=== PATIENT | male | born 1990 | race African-American/Black ===

== ENCOUNTER 2019-02-17 20:40 | Emergency (ER) | payer BC ==
[~2019-02-17] VITALS: Ht 185.4 cm; Wt 124.7 kg
[2019-02-17 23:16] VITALS: BP 122/103
[2019-02-17 23:54] LABS: INFLUENZA A PATIENT POSITIVE (NEGATIVE); INFLUENZA B PATIENT NEGATIVE (NEGATIVE)
[2019-02-18] MEDS ORDERED: OSEL75CA PO (00:10)
--- NOTE | 2019-02-18 00:10 | PHYS DOC ---
Past Medical History Past Medical History: Diabetes-Type II (MUNDO JEFFREY APRN) Past Surgical History: No Surgical History (MUNDO JEFFREY APRN) Alcohol Use: None Drug Use: None (MUNDO JEFFREY APRN) Attending Signature I have participated in the care of this patient and I have reviewed and agree with all pertinent clinical information above including history, exam, and recommendations. (STEVE CARMONA MD) Adult General Chief Complaint Chief Complaint: FLU SYMPTOM HPI HPI Patient is a 28 year old male who presents with fever, body aches, fatigue. Patient reports his symptoms started in the last 24-36 hours. Reports he hasn't checked his temperature at home but he has felt chills, fevers. States he has had a mild cough for the last day, has not taken any medications for discomfort. Denies nausea, vomiting, diarrhea. (MUNDO JEFFREY APRN) Review of Systems Review of Systems Constitutional: Reports feeling warm, and having chills] Eyes: Denies change in visual acuity, redness, or eye pain [] HENT: Denies nasal congestion or sore throat [] Respiratory: Reports intermittent cough, nonproductive[] Cardiovascular: No additional information not addressed in HPI [] GI: Denies abdominal pain, nausea, vomiting, bloody stools or diarrhea [] : Denies dysuria or hematuria [] Musculoskeletal: Denies back pain or joint pain. Reports generalized body aches [] Integument: Denies rash or skin lesions [] Neurologic: Reports occasional headaches[] Endocrine: Denies polyuria or polydipsia [] All other systems were reviewed and found to be within normal limits, except as documented in this note. (MUNDO JEFFREY APRN) Physical Exam Physical Exam Constitutional: Well developed, well nourished, no acute distress, non-toxic appearance. [] HENT: Normocephalic, atraumatic, bilateral external ears normal, oropharynx moist, no oral exudates, nose normal. [] Eyes: PERRLA, EOMI, conjunctiva normal, no discharge. [] Neck: Normal range of motion, no tenderness, supple, no stridor. [] Cardiovascular:Heart rate regular rhythm, no murmur [] Lungs & Thorax: Bilateral breath sounds clear to auscultation [] Skin: Warm, dry, no erythema, no rash. [] Extremities: No tenderness, no cyanosis, no clubbing, ROM intact, no edema. [] Neurologic: Alert and oriented X 3, normal motor function, normal sensory func tion, no focal deficits noted. [] (MUNDO JEFFREY APRN) Current Patient Data Vital Signs Vital Signs Date Time Temp Pulse Resp B/P (MAP) Pulse Ox O2 Delivery O2 Flow Rate FiO2 02/17/19 23:16 100.1 99 22 122/103 (109) 99 Room Air 100.1 (STEVE CARMONA MD) Lab Values Laboratory Tests Test 02/17/19 22:50 Influenza Type A Antigen Positive (NEGATIVE) Influenza Type B Antigen Negative (NEGATIVE) (STEVE CARMONA MD) EKG EKG [] (MUNDO JEFFREY APRN) Radiology/Procedures Radiology/Procedures [] (MUNDO EJFFREY APRN) Course & Med Decision Making Course & Med Decision Making Pertinent Labs and Imaging studies reviewed. (See chart for details) [] (MUNDO JEFFREY APRN) Dragon Disclaimer Dragon Disclaimer This electronic medical record was generated, in whole or in part, using a voice recognition dictation system. (MUNDO JEFFREY APRN) Departure Departure Impression: Primary Impression: Influenza A Disposition: 01 HOME, SELF-CARE Condition: GOOD Referrals: NO PCP (PCP) Patient Instructions: Influenza A (H1N1) Additional Instructions: As discussed, continue to take Tylenol or ibuprofen for discomfort. We have called a prescription of Tamiflu which she should take over the next 5 days to help shorten your symptoms. Try to make sure you're drinking lots of fluid. Stay home and rest. Scripts Oseltamivir Phosphate (TAMIFLU) 75 Mg Capsule 75 MG PO BID for FLU for 5 Days, #10 TAB 0 Refills Prov: MUNDO JEFFREY APRN 02/18/19 MUNDO JEFFREY APRN Feb 18, 2019 00:10 STEVE CARMONA MD Feb 18, 2019 07:57
== END 2019-02-18 00:28 | disposition home or self-care (01) ==
LOC: ER 20:40
DX: J10.1 Influenza due to other identified influenza virus with other respiratory manifestations (principal); R50.9 Fever, unspecified; R05 Cough; R51 Headache; E11.9 Type 2 diabetes mellitus without complications
CPT/HCPCS: 87804; 99284